=== PATIENT | male | born 2000 | race Caucasian/White ===

== ENCOUNTER 2023-03-06 16:01 | Emergency (ER) | payer OTHER, SELFPAY ==
[2023-03-06 17:00] VITALS: BP 158/87; PULSE 73; RESP 16; TEMP 37.1; O2SAT 97; BMI 28.5
--- NOTE | 2023-03-06 17:00 | ED.WOUNDLAC ---
HPI - Wound/Laceration General Chief Complaint: Wound/Laceration Stated Complaint: laceration left hand Time Seen by Provider: 03/06/23 17:00 Source: patient Mode of arrival: ambulatory Limitations: no limitations History of Present Illness HPI narrative: 22-year-old male right-hand dominant with no known medical history presents the ER with complaints of laceration to the left 3rd digit. Tetanus is up-to-date. No weakness, numbness, tingling of the extremity. Related Data Allergies Allergy/AdvReac Type Severity Reaction Status Date / Time No Known Allergies Allergy Verified 03/06/23 17:00 Review of Systems Review of Systems: Yes all other systems are reviewed and are negative Constitutional: Constitutional: Reports no additional constitutional complaints, Denies body ache(s), Denies chills, Denies fever(s), Denies headache(s) and Denies weakness Eyes: Eyes: Reports no additional eye complaints and Denies change in vision ENT: Reports system reviewed and no additional complaints, except as documented, Denies dizziness, Denies headache(s), Denies nasal congestion, Denies nasal discharge and Denies neck pain Cardiovascular: Cardiovascular: Reports no additional cardiovascular complaints, Denies chest pain, Denies leg edema and Denies dyspnea Respiratory: Respiratory: Reports no additional respiratory complaints, Denies cough and Denies dyspnea Gastrointestinal: Gastrointestinal: Reports no additional gastrointestinal complaints, Denies abdominal pain, Denies diarrhea, Denies nausea and Denies vomiting Genitourinary: Genitourinary: Denies urinary incontinence Musculoskeletal: Musculoskeletal: Reports no additional musculoskeletal complaints, Denies back pain, Denies arthralgias, Denies joint swelling, Denies neck pain, Denies numbness and Denies tingling Integumentary/Breasts: Skin/Breast: Reports system reviewed and no additional complaints, except as docu, Denies rash and Reports wounds Neurologic: Reports system reviewed and no additional complaints, except as documented, Denies Abnormal speech present, Denies dizziness, Denies headache(s), Denies numbness, Denies tingling and Denies weakness PMFSH Past Medical History Attestation statement: The following information was validated with the patient. Source: old records reviewed and nursing notes reviewed Physical Exam Vital Signs: Vital Signs: Last Vital Signs Temp 98.7 F 03/06/23 17:00 Pulse 73 03/06/23 17:00 Resp 16 03/06/23 17:00 BP 158/87 H 03/06/23 17:00 Pulse Ox 97 03/06/23 17:00 O2 Del Method Room Air 03/06/23 17:00 BMI result Body Mass Index 28.5 Const: General: cooperative, healthy appearing, comfortable and no acute distress Orientation/consciousness: patient oriented x3 Limitations: no limitations HEENT: Head: Yes normal to inspection Ears: hearing grossly normal bilaterally General nose exam: Normal external nose present Face and sinus: Yes normal facial exam Mouth: Normal oral and palatal mucosa present Throat: Yes posterior oropharynx normal Eyes: General: appearance normal, both eyes and all related structures Pupils: Equal, round and reactive pupils present Neck: Neck: Yes normal visual inspection Chest: Chest palpation & inspection: normal inspection of the chest Resp: Effort & Inspection: normal respiratory effort Auscultation: clear to auscultation bilaterally Cardio: Rate: regular rate Rhythm: regular rhythm Peripheral pulses: Peripheral pulses 2+ throughout GI: Inspection: Yes normal to inspection Palpation (GI): Soft to palpation and nontender Auscultation: normal bowel sounds Back/Spine/Pelvis: Thoracic/Lumbar Spine: thoracic and lumbar spine normal to inspection Skin: General skin exam: no rashes or lesions noted Neuro: General: patient oriented x3, no focal motor deficits and normal sensation to monofilament Cranial nerves: Yes Equal, round and reactive pupils present Cognition (Neuro): normal cognition Speech: No Abnormal speech present Gait exam (Neuro): Normal gait present Motor exam (neuro): 5/5 motor strength present throughout Extrem: Other: To the left hand 3rd digit to the distal dorsal aspect there is a laceration which is more of a skin flap. Bleeding is controlled. Active range of motion is normal. Medical Decision Making Medical Decision Making MDM Narrative: 22-year-old male right-hand dominant with no known medical history presents the ER with complaints of laceration to the left 3rd digit. Tetanus is up-to-date. No weakness, numbness, tingling of the extremity. Superficial laceration noted. Bleeding is controlled. CMS normal Will cleanse the site, apply a dressing Differential Diagnosis Differential Diagnoses: The differential diagnosis associated with the presentation includes Laceration, abrasion Tests considered The following testing was considered but not selected: Normal range of motion with no need for imaging Prescription Management I considered prescription management with: Antibiotic Patient was cutting fruit, wound is not contaminated, no need for antibiotic Discharge Plan Discharge Clinical Impression: Laceration of finger Patient Disposition: Home, Self-Care Instructions: Laceration (ED) Additional Instructions: Keep the dressing in place for 24 hours. Then removed the dressing and wash with soap and water daily Monitor for signs of infection such as redness, fever, drainage Referrals: Physician,Unknown J [Primary Care Provider] - 1 week Stand Alone Forms: Work/School Release Interventions: ED Discharge Assessment Last Done: 03/06/23 17:07
== END 2023-03-06 17:29 | disposition home or self-care (01) ==
LOC: HO.ED 17:24
PROVIDERS: Emergency Provider Student in an Organized Health Care Education/Training Program
DX: S61.213A Laceration without foreign body of left middle finger without damage to nail, initial encounter (principal); W26.0XXA Contact with knife, initial encounter; Y93.G1 Activity, food preparation and clean up; Y92.511 Restaurant or cafe as the place of occurrence of the external cause; Y99.0 Civilian activity done for income or pay
CPT/HCPCS: 99283